=== PATIENT | female | born 1955 | race Hispanic/Latino ===

== ENCOUNTER 2017-10-26 09:25 | Emergency (ER) | payer OTHER, SELFPAY ==
[2017-10-26 09:36] VITALS: TEMP 98
--- NOTE | 2017-10-26 10:22 | C.PDOC ---
History Of Present Illness 62 y/o female presents to ED with complaints of leg swelling for 3 weeks. Patient admits to smoking and denies injury, trauma, history of DVT/PE, chest pain, sob or any other complaints at this time. Time Seen by Provider: 10/26/17 10:11 Chief Complaint (Nursing): Lower Extremity Problem/Injury History Per: Patient History/Exam Limitations: no limitations Onset/Duration Of Symptoms: Days Current Symptoms Are (Timing): Still Present Past Medical History Reviewed: Historical Data, Nursing Documentation, Vital Signs Vital Signs: Last Vital Signs Temp 98.0 F 10/26/17 09:34 Pulse 80 10/26/17 09:34 Resp 19 10/26/17 09:34 BP 135/79 10/26/17 09:34 Pulse Ox 98 10/26/17 11:50 - Medical History PMH: Back Problems (Sciatica), Schizophrenia Surgical History: No Surg Hx Family History: States: No Known Family Hx - Social History Hx Tobacco Use: Yes Hx Alcohol Use: No Hx Substance Use: No - Immunization History Hx Tetanus Toxoid Vaccination: No Hx Influenza Vaccination: Yes Hx Pneumococcal Vaccination: No Review Of Systems Except As Marked, All Systems Reviewed And Found Negative. Musculoskeletal: Positive for: Other (Leg swelling ) Physical Exam - Physical Exam Appears: Non-toxic, No Acute Distress Skin: Warm, Dry, No Rash Head: Atraumatic, Normacephalic Eye(s): bilateral: Normal Inspection Oral Mucosa: Moist Neck: Normal ROM, Supple Chest: Symmetrical Extremity: No Calf Tenderness, No Deformity, Swelling (left leg) Extremity: Bilateral: Normal ROM Pulses: Left Dorsalis Pedis: Normal, Right Dorsalis Pedis: Normal Neurological/Psych: Oriented x3, Normal Motor, Normal Sensation Gait: Steady ED Course And Treatment O2 Sat by Pulse Oximetry: 98 (RA) Pulse Ox Interpretation: Normal Medical Decision Making Medical Decision Making: Assessment: Left leg swelling Progress: Doppler negative, pt advised to follow up with PMD in 2 days Diagnosis: Lower extremity edema Disposition Counseled Patient/Family Regarding: Studies Performed, Diagnosis, Need For Followup - Disposition Referrals: Jagjit Zarate MD [Staff Provider] - Disposition: HOME/ ROUTINE Disposition Time: 11:50 Condition: STABLE Additional Instructions: follow up with your doctor in 2 days call to make an appointment take medications as prescribed return to ER if symptoms worsens or progress Instructions: Swelling Forms: [facility] (Estonian), General Discharge Instructions - Clinical Impression Clinical Impression: Left leg pain, Edema - Scribe Statement The provider has reviewed the documentation as recorded by the Scriblinda Rowell All medical record entries made by the Scribe were at my direction and personally dictated by me. I have reviewed the chart and agree that the record accurately reflects my personal performance of the history, physical exam, medical decision making, and the department course for this patient. I have also personally directed, reviewed, and agree with the discharge instructions and disposition.
[2017-10-26 12:09] VITALS: BP 145/66; PULSE 83; RESP 16
--- NOTE | 2017-10-26 13:35 | VASCLAB ---
PROCEDURE: Left Lower Extremity Venous Duplex Exam. HISTORY: Swelling PRIORS: None. TECHNIQUE: Left common femoral, femoral, popliteal and posterior tibial, peroneal and great saphenous veins were evaluated. Flow was assessed with color Doppler, compressibility, assessment of phasic flow and augmentation response. Report prepared by JESUS Tobin, RVT FINDINGS: LEFT: 1. Common Femoral Vein: 1.1. Compressibility - Fully compressible: Thrombus - None : Flow - Phasic: Augmentation -Normal: Reflux - Severe. 2.48s 2. Femoral Vein: 2.1. Compressibility - Fully compressible: Thrombus - None: Flow - Phasic: Augmentation -Normal: Reflux - None. 3. Popliteal Vein: 3.1. Compressibility - Fully compressible: Thrombus - None: Flow - Phasic: Augmentation -Normal: Reflux - None. 4. Posterior Tibial Vein: 4.1. Compressibility - Fully compressible: Thrombus - None: Flow - Phasic: Augmentation -Normal: Reflux - None. 5. Peroneal Vein: 5.1. Compressibility - Fully compressible: Thrombus - None: Flow - Phasic: Augmentation -Normal: Reflux - None. 6. Great Saphenous Vein: 6.1. Compressibility - Fully compressible: Thrombus - None: Flow - Phasic: Augmentation - Normal: Reflux - Severe. 3.83s OTHER FINDINGS: IMPRESSION: No evidence of deep or superficial vein thrombosis of the left lower extremity with excellent venous flow. Severe valvular incompetence of the left common femoral and greater saphenous veins. Normal venous flow noted in the right common femoral vein.
[2017-10-28 09:23] VITALS: O2SAT 98
== END 2017-10-26 12:08 | disposition home or self-care (01) ==
LOC: C.ER 09:25
DX: M79.605 Pain in left leg (principal); M79.89 Other specified soft tissue disorders; Z72.0 Tobacco use